=== PATIENT | female | born 1960 | race Two or more races ===

== ENCOUNTER 2019-02-27 16:55 | Inpatient (IN) | payer OTHER ==
[~2019-02-27] VITALS: Ht 165.1 cm; Wt 99.8 kg
[2019-03-06] MEDS ORDERED: VERAPAMIL ER120 MG PO (14:39)
[2019-03-06] MEDS ORDERED: SINGULAIR10 MG PO (14:39)
[2019-03-13] MEDS ORDERED: OXYC1TAB9 PO (13:19)
[2019-03-13] MEDS ORDERED: INTESTINEX680 M1 PO (13:19)
[2019-03-13] MEDS ORDERED: PANTOPRAZOLE SO40 MG PO (13:19)
== END 2019-03-13 15:28 | disposition home or self-care (01) | DRG 331 ==
LOC: SURH 03-08 08:06 → O/R 03-08 08:06 → SURG 03-08 08:30 → SURH 03-08 11:58 → SURG 03-08 15:00 → SURH 03-13 15:28
PROVIDERS: ADMIT Surgery
PROC: 07TB4ZZ Resection of Mesenteric Lymphatic, Percutaneous Endoscopic Approach (ICD-10-PCS; 2019-03-08)
PROC: 3E0F7GC Introduction of Other Therapeutic Substance into Respiratory Tract, Via Natural or Artificial Opening (ICD-10-PCS; 2019-03-08)
PROC: 0DTF4ZZ Resection of Right Large Intestine, Percutaneous Endoscopic Approach (ICD-10-PCS; principal; 2019-03-08 08:30)
DX: C18.2 Malignant neoplasm of ascending colon (principal); D12.2 Benign neoplasm of ascending colon; J45.20 Mild intermittent asthma, uncomplicated; I11.9 Hypertensive heart disease without heart failure; D50.0 Iron deficiency anemia secondary to blood loss (chronic); E66.8 Other obesity; R73.01 Impaired fasting glucose